=== PATIENT | male | born 2000 | race Caucasian/White ===

== ENCOUNTER 2022-12-20 08:10 | Outpatient (CLI) | payer OTHER, SELFPAY | END 2022-12-20 08:11 | disposition home or self-care (01) | PROVIDERS: PCP Family Medicine; Visit Provider Family Medicine | DX: Z00.00 Encounter for general adult medical examination without abnormal findings (principal); M79.604 Pain in right leg; Z13.6 Encounter for screening for cardiovascular disorders | CPT/HCPCS: 80053; 80061; 83540; 83550 ==

== ENCOUNTER 2025-03-03 10:03 | Outpatient (CLI) | payer OTHER, SELFPAY ==
--- NOTE | 2025-03-03 10:15 | CRLHL7_ITS ---
For Patients: As a result of the Century Cures Act, medical imaging exams and procedure reports are released immediately into your electronic medical record. You may view this report before your referring provider. If you have questions, please contact your health care provider. INDICATION: KNOWN Eosinophilic ESOPHAGITIS, GERD, DYSPHAGIA TECHNIQUE: Modified barium swallow. Fluoroscopic time 55 seconds. FINDINGS/IMPRESSION: Anatomical structures are normal. Swallowing mechanism appears within normal limits. No episodes of penetration or aspiration. No significant findings. Dictated by Sanket Rutledge MD @ 03/03/2025 11:16:53 AM (Electronically Signed)
--- NOTE | 2025-03-03 13:33 | SLP.MBS ---
FOOD SCIENCE TECHNICIAN Modified Barium Swallow FOOD SCIENCE TECHNICIAN Modified Barium Swallow Eval Start: 03/03/25 12:10 Text: Status: Active Freq: Protocol: Document 03/03/25 12:11 DEB (Rec: 03/03/25 12:32 DEB [id number]) E-signed By LIBERTY Wang Modified Barium Swallow Evaluation Evaluation Reason for Referral Dysphagia (R13.10) Medical Diagnosis Eosinophilic esophagitis Treatment Diagnosis Dysphagia Date of Order 02/15/25 Type of Referral Evaluation Onset of Patient's Problem April 2023 Pertinent Medical History April 2023 food impaction with urgent EGD; had esophageal tear. When on omeprazole for 2 months. Repeat EGD November of 2024 at [facility] and was diagnosed with eosinophilic esophagitis. Was started on Pantoprazole, 40mg twice per day. Medications Reviewed Hearing Status WNL Vision Status WNL Subjective/Pain Comment Dale describe his swallowing as feeling incoordinated and sometimes feeling a dull aching pain down the front right side of his throat mostly with solid food items and can be worse at the end of the meal. He feels as though he can't swallow large bolus size so has been modifiying to small bites and sips. He does endorse a 20-30 pound weight loss over six months, however, it was documented elsewhere in his chart as being over two years. He denies having any GERD symptoms since her started the new medication. Assessment/Impressions ASSESSMENT Oral [facility] exam: WNL Baseline diet: Regular with thin, although avoids some meats Trials of thin, puree, solid and barium tablet were administered under fluoroscopy in lateral and A/P views. Thin: presented via spoon, cup , and consecutive swallows by straw. Oral phase: adequate acceptance and containment with minimal oral residue on the mid-tongue with cup and straw sips. Two swallows per bite which cleared any residue . Pharyngeal phase: Good clearance with no pharyngeal residue. Minimal laryngeal penetration with consecutive swallows. No aspiration. Puree: presented via spoon. Oral phase: adequate acceptance and containment with mild oral residue on the mid-tongue that was cleared with a second swallow. Pharyngeal phase: Good clearance with no pharyngeal residue. No laryngeal penetration or aspiration. Solid: presented via spoon. Oral phase: adequate acceptance and containment with mild oral residue on the mid-tongue that was cleared with a second swallow. Pharyngeal phase: Good clearance with no pharyngeal residue. No laryngeal penetration or aspiration. Barium tablet: WNL A/P view: WNL GEOVANNA Babb is a 25-year-old male with history of food impaction and recent diagnosis of eosinophilic esophagitis. A video swallow study was completed per provider orders. Under fluoroscopy, patient presents with normal oropharyngeal swallow. Oral phase functional with patient needing to swallow twice per bite to clear the small amount of the bolus that coated the mid to back tongue. Pharyngeal phase normal with no aspiration. Minimal laryngeal penetration with consecutive swallows of thin which in within normal limits. Barium tablet swallowed with no difficulty, however, it was cut in half per patient preference. Recommend a Regular diet with thin liquids . Safe swallow strategies include upright for all po and remain upright 30 minutes after meals, small bites at a slow rate, small single sips, medications whole with liquids . Reflux precautions include stay upright for one hour after meals, smaller more frequent meals, eat last meal three hours before bedtime, elevate head of bed 4-6 inches . Goals/Functional Outcomes Patient will verbalize understanding of today's results and recommendations. Goal met today. Modified Barium Swallow Education Education Topics Teaching Recipient Patient Teaching Methods Verbal Response to Teaching Verbalize Understanding Therapist Signature/License Number Pepe Flannery MS CCC-FOOD SCIENCE TECHNICIAN # [id number] Speech/Language Pathology Billing Units Billing Units Eval Swallow Motion Fluoro 1
--- NOTE | 2025-03-03 13:34 | SLP.MBS ---
FIELD CARE ADVOCATE Modified Barium Swallow FIELD CARE ADVOCATE Modified Barium Swallow Eval Start: 03/03/25 12:10 Text: Status: Active Freq: Protocol: Document 03/03/25 12:11 DEB (Rec: 03/03/25 12:32 DEB [id number]) E-signed By LIBERTY Wang Modified Barium Swallow Evaluation Evaluation Reason for Referral Dysphagia (R13.10) Medical Diagnosis Eosinophilic esophagitis Treatment Diagnosis Dysphagia Date of Order 02/15/25 Type of Referral Evaluation Onset of Patient's Problem April 2023 Pertinent Medical History April 2023 food impaction with urgent EGD; had esophageal tear. When on omeprazole for 2 months. Repeat EGD November of 2024 at [facility] and was diagnosed with eosinophilic esophagitis. Was started on Pantoprazole, 40mg twice per day. Medications Reviewed Hearing Status WNL Vision Status WNL Subjective/Pain Comment Dale describe his swallowing as feeling incoordinated and sometimes feeling a dull aching pain down the front right side of his throat mostly with solid food items and can be worse at the end of the meal. He feels as though he can't swallow large bolus size so has been modifiying to small bites and sips. He does endorse a 20-30 pound weight loss over six months, however, it was documented elsewhere in his chart as being over two years. He denies having any GERD symptoms since her started the new medication. Assessment/Impressions ASSESSMENT Oral [facility] exam: WNL Baseline diet: Regular with thin, although avoids some meats Trials of thin, puree, solid and barium tablet were administered under fluoroscopy in lateral and A/P views. Thin: presented via spoon, cup , and consecutive swallows by straw. Oral phase: adequate acceptance and containment with minimal oral residue on the mid-tongue with cup and straw sips. Two swallows per bite which cleared any residue . Pharyngeal phase: Good clearance with no pharyngeal residue. Minimal laryngeal penetration with consecutive swallows. No aspiration. Puree: presented via spoon. Oral phase: adequate acceptance and containment with mild oral residue on the mid-tongue that was cleared with a second swallow. Pharyngeal phase: Good clearance with no pharyngeal residue. No laryngeal penetration or aspiration. Solid: presented via spoon. Oral phase: adequate acceptance and containment with mild oral residue on the mid-tongue that was cleared with a second swallow. Pharyngeal phase: Good clearance with no pharyngeal residue. No laryngeal penetration or aspiration. Barium tablet: WNL A/P view: WNL GEOVANNA Babb is a 25-year-old male with history of food impaction and recent diagnosis of eosinophilic esophagitis. A video swallow study was completed per provider orders. Under fluoroscopy, patient presents with normal oropharyngeal swallow. Oral phase functional with patient needing to swallow twice per bite to clear the small amount of the bolus that coated the mid to back tongue. Pharyngeal phase normal with no aspiration. Minimal laryngeal penetration with consecutive swallows of thin which in within normal limits. Barium tablet swallowed with no difficulty, however, it was cut in half per patient preference. Recommend a Regular diet with thin liquids . Safe swallow strategies include upright for all po and remain upright 30 minutes after meals, small bites at a slow rate, small single sips, medications whole with liquids . Reflux precautions include stay upright for one hour after meals, smaller more frequent meals, eat last meal three hours before bedtime, elevate head of bed 4-6 inches . Goals/Functional Outcomes Patient will verbalize understanding of today's results and recommendations. Goal met today. Modified Barium Swallow Education Education Topics Teaching Recipient Patient Teaching Methods Verbal Response to Teaching Verbalize Understanding Therapist Signature/License Number Pepe Flannery MS CCC-FIELD CARE ADVOCATE # [id number] Speech/Language Pathology Billing Units Billing Units Eval Swallow Motion Fluoro 1
== END 2025-03-03 10:04 | disposition home or self-care (01) ==
LOC: RAD 10:04
PROVIDERS: PCP Family Medicine; Visit Provider Family Medicine
DX: R13.10 Dysphagia, unspecified (principal); K21.9 Gastro-esophageal reflux disease without esophagitis
CPT/HCPCS: 74230; 92611

== ENCOUNTER 2025-03-25 13:45 | Outpatient (CLI) | payer OTHER, SELFPAY ==
--- NOTE | 2025-03-25 14:00 | CRLHL7_ITS ---
For Patients: As a result of the Century Cures Act, medical imaging exams and procedure reports are released immediately into your electronic medical record. You may view this report before your referring provider. If you have questions, please contact your health care provider. Indication: Dysphagia. Technique: Contrast-enhanced CT of the neck with multiplanar reconstruction utilizing 89 cc Isovue 370 iodinated intravenous contrast. Comparison: None available. Findings: No soft tissue mass or suspicious mucosal based asymmetry. No pathologically enlarged cervical lymph nodes. Normal parotid and submandibular glands. Unremarkable thyroid. The lung apices are clear. The major vascular structures appear within normal limits. The imaged intracranial structures and orbits are unremarkable. Impression: No soft tissue mass, pathologically enlarged cervical lymph nodes, or evidence of infection/inflammation. Please note that all CT scans at this facility use dose modulation, iterative reconstruction, and/or weight-based dosing when appropriate to reduce radiation dose to as low as reasonably achievable. Dictated by Benedicto Rosario MD @ 03/26/2025 1:16:21 PM (Electronically Signed)
== END 2025-03-25 13:46 | disposition home or self-care (01) ==
LOC: CT 13:46
PROVIDERS: PCP Family Medicine; Visit Provider Otolaryngology
DX: R13.10 Dysphagia, unspecified (principal); R59.0 Localized enlarged lymph nodes
CPT/HCPCS: 70491; Q9967